=== PATIENT | female | born 1970 | race Two or more races ===

== ENCOUNTER 2016-11-25 10:15 | Observation (INO) | payer OTHER ==
[2016-11-25] MEDS ORDERED: LIDOCAINE 1% 2 ML INJ ID PRN (11:00)
[2016-11-25] MEDS ORDERED: LR 1,000 ML IV ONE ×3 (11:00→23:30)
--- NOTE | 2016-11-25 12:32 | PDHPUP ---
History & Physical Update H&P update statement: This history and physical update is based on an assessment of the patient which was completed after admission or registration (within 24 hours), but prior to the surgery/procedure. H&P update: H&P reviewed & patient examined, no change in patient's condition since H&P completed
--- NOTE | 2016-11-25 12:37 | PDANEPAE ---
ANE History of Present Illness B mastectomy ANE Past Medical History - Cardiovascular History Hx Hypertension: No Hx Arrhythmias: No Hx Chest Pain: No Hx Coronary Artery / Peripheral Vascular Disease: No Hx CHF / Valvular Disease: No Hx Palpitations: No Cardiovascular History Comment: heart murmur - no problems - Pulmonary History Hx COPD: No Hx Asthma/Reactive Airway Disease: No Hx Recent Upper Respiratory Infection: No Hx Oxygen in Use at Home: No Hx Sleep Apnea: No Sleep Apnea Screening Result - Last Documented: Negative - Neurologic History Hx Cerebrovascular Accident: No Hx Seizures: No Hx Dementia: No - Endocrine History Hx Diabetes: No Hypothyroid: Yes Hyperthyroid: Yes Endocrine History Comment: synthroid due to near total removal due to CA - Renal History Hx Renal Disorders: No - Liver History Hx Hepatic Disorders: No - Neurological & Psychiatric Hx Hx Neurological and Psychiatric Disorders: No - Cancer History Hx Cancer: Yes Cancer History Comment: thyroid cancer in 1993 - Congenital Disorder History Hx Congenital Disorders: No - GI History GERD: mild Hx Gastrointestinal Disorders: Yes Gastrointestinal History Comment: IBS - Other Health History Other Health History: L breast lump. painful periods. - Chronic Pain History Chronic Pain: No - Surgical History Prior Surgeries: 2011 right shoulder surgery, 1990 C section, 1993 total capillary surgery - remove thryroid gland, 1995 C section and tubal ligation, 1998 hernia , ANE Review of Systems - Exercise capacity METS (RN): 4 METS ANE Patient History - Allergies Allergies/Adverse Reactions: No Known Allergies Allergy (Verified 11/10/16 15:01) - Home Medications Home Medications: Levothyroxine [Synthroid 100 mcg (*)] 100 mcg PO DAILY06 11/10/16 [Last Taken 07:00] - NPO status NPO Since - Liquids (Date): 11/24/16 NPO Since - Liquids (Time): 18:00 NPO Since - Solids (Date): 11/24/16 NPO Since - Solids (Time): 18:00 - Anes Hx Anes Hx: no prior problems - Smoking Hx Smoking Status: Never smoked Marijuana use: No - Alcohol Use Alcohol Use: Rarely - Family Anes Hx Family Anes Hx: none Family Hx Anesthesia Complications: NONE ANE Labs/Vital Signs - Vital Signs Blood Pressure: 120/58 Heart Rate: 66 Respiratory Rate: 16 O2 Sat (%): 94 Height: 152.4 cm Weight: 63.503 kg ANE Physical Exam - [facility] 3 Mouth exam: normal dental/mouth exam - Pulmonary Pulmonary: clear to auscultation - Cardiovascular Cardiovascular: regular rate and rhythym - ASA Status ASA Status: II ANE Anesthesia Plan Anesthesia Plan: general endotracheal anesthesia
[2016-11-25] MEDS ORDERED: MIDAZOLAM 2 MG/2 ML VIAL IVP ONE (12:39)
[2016-11-25] MEDS ORDERED: BUPIVACAINE 0.25% 30 ML SDV ONE (12:45)
[2016-11-25] MEDS ORDERED: GENTAMICIN SULFATE 80 MG/2 ML VIAL ONE ×2 (12:46→14:13)
[2016-11-25] MEDS ORDERED: ceFAZolin 1 GM VIAL ONE ×3 (12:46→13:55)
[2016-11-25] MEDS ORDERED: ceFAZolin 1 GM/5 ML SYR ONE ×2 (12:48→14:14)
[2016-11-25] MEDS ORDERED: BACITRACIN 50,000 UNITS/10 ML SYR IRR ONE ×2 (12:49→14:15)
[2016-11-25] MEDS ORDERED: BACITRACIN ZINC 14.2 GM OINTTUBE TP ONE ×2 (12:50→16:31)
[2016-11-25] MEDS ORDERED: fentaNYL 100 MCG/2 ML INJ ONE ×5 (13:09→17:55)
[2016-11-25] MEDS ORDERED: PROPOFOL/EMULSION 500 MG/50 ML BOTTLE IV ONE (13:11)
[2016-11-25] MEDS ORDERED: ROCURONIUM 50 MG/5 ML VIAL ONE (13:12)
[2016-11-25] MEDS ORDERED: DEXAMETHASONE 4 MG/ML VIAL ONE (13:37)
[2016-11-25] MEDS ORDERED: KETOROLAC 30 MG/1 ML SDV ONE (14:30)
[2016-11-25] MEDS ORDERED: ONDANSETRON 4 MG/2 ML VIAL ONE (16:17)
[2016-11-25] MEDS ORDERED: PHENYLEPHRINE HCL 100 MCG/ML SYR ONE (16:17)
[2016-11-25] MEDS ORDERED: NEOSTIGMINE METHYLSULFATE 3 MG/3 ML SYR ONE (16:20)
[2016-11-25] MEDS ORDERED: GLYCOPYRROLATE 0.2 MG/1 ML VIAL ONE (16:21)
[2016-11-25] MEDS ORDERED: fentaNYL 100 MCG/2 ML INJ IVP PRN (16:48)
[2016-11-25] MEDS ORDERED: HYDROCODONE/APAP 5/325 TAB PO PRN (16:48)
[2016-11-25] MEDS ORDERED: NALOXONE HCL 0.4 MG/ML INJ IVP PRN (16:48)
--- NOTE | 2016-11-25 17:41 | POSTANESTH ---
Post Anesthetic Evaluation Cardiovascular Status: Normal, Stable Respiratory Status: Normal, Stable Level of Consciousness/Mental Status: Can Participate in Eval Pain Control: Adequate, Prn Tx Ordered Nausea/Vomiting Control: Adequate, Prn Tx Ordered Complications Possibly Related to Anesthesia: None Noted
[2016-11-25] MEDS ORDERED: ONDANSETRON 4 MG/2 ML VIAL IVP PRN (18:18)
[2016-11-25] MEDS ORDERED: HYDROmorphONE/DILAUDID 1 MG/ML SYR IVP PRN (18:18)
--- NOTE | 2016-11-25 18:24 | POSTOPPROG ---
Post Op Note Date of Operation: 11/25/16 Surgeon: Arsalan Garrison Clipper Automatic: Fahad Burgess Anesthesiologist: eDreck Hook Anesthesia: GET(General Endotracheal) Pre-op Diagnosis: BRCA 2 Post-op Diagnosis: Same Procedure: Bilat simple mastectomy with immed TE recons Inf/Abcess present in the surg proc area at time of surgery?: No EBL: 50-100 Complications: no immediate Specimen(s): bilateral breasts and nipple margins
--- NOTE | 2016-11-25 21:44 | GOP ---
[f rep st] OPERATIVE REPORT DATE OF OPERATION: 11/25/2016 SURGEON: Arsalan Garrison MD PLASTIC SURGEON: Tracy Huerta MD MANAGER CRITICAL CARE UNIT: Fahad Burgess CST ANESTHESIA: General. ANESTHESIOLOGIST: Dr. Hook. PREOPERATIVE DIAGNOSIS: BRCA2 mutation. POSTOPERATIVE DIAGNOSIS: BRCA2 mutation. PROCEDURE PERFORMED: Bilateral prophylactic nipple-sparing mastectomies with immediate tissue doll surgeon reconstruction. INDICATIONS: 45-year-old female with a history of BRCA2 mutation. She has opted to undergo prophylactic nipple-sparing mastectomies at this time. Risks and benefits were explained of bleeding, infection, potential development of breast cancer, skin flap necrosis, need for additional skin revision, as well as alternative diagnoses. All questions were answered. She desires to proceed. A surgical elastic knitter is standard and necessary and customary for the safe performance of this procedure. DESCRIPTION OF PROCEDURE: After general anesthesia was induced, bilateral breasts were incised through lateral inframammary fold incisions. Using electrocautery, skin flaps were created to the level of the clavicle, sternum, inframammary fold, as well as latissimus dorsi muscle laterally. The breast envelopes were peeled from [id number] and taken high up in the axillary tails of Ortiz incorporating the pectoralis major fascia. Using sharp dissection, bilateral nipples were cleared of all surrounding fibrous breast tissue. These were all sent as final nipple-margin specimens. Bilateral dissections were with extremely poorly defined tissue planes throughout both anterior and posterior dissections. Satisfactory hemostasis was assured. Care of the case was turned to Dr. Huerta for tissue doll surgeon placement and wound closure. /[id number]/MODL MTDD
[2016-11-25] MEDS: IBUPROFEN 600 MG TAB PO SCH (21:51)
[2016-11-26] MEDS: KETOROLAC 15 MG/1 ML SDV IVP SCH ×3 (00:31→11:21)
--- NOTE | 2016-11-26 02:19 | GOP ---
[f rep st] OPERATIVE REPORT DATE OF OPERATION: 11/25/2016 SURGEON: Tracy Huerta Jr., MD CLINICAL SUPPORT SPECIALIST: Fahad Burgess, ANESTHESIOLOGY FACULTY by surgeon request (skilled surgical attendant was necessary due t o the technical complexity of the case and desire to minimize patient's anesthesia time). ANESTHESIA: The patient had general inhalational anesthetic. ANESTHESIOLOGIST: Dereck Hook MD. PREOPERATIVE DIAGNOSIS: Genetic mutation for breast cancer. POSTOPERATIVE DIAGNOSIS: Genetic mutation for breast cancer. PROCEDURE PERFORMED: Immediate bilateral breast reconstruction utilizing tissue expanders and human dermal allograft. FINDINGS: ESTIMATED BLOOD LOSS: During reconstruction was 50 cc. INDICATIONS: The patient is a 45-year-old, female, with a strong family history for breast cancer and a genetic mutation predisposing her to the development of breast cancer. She elected to undergo bilateral prophylactic mastectomies, and elected to have immediate reconstruction using a s taged approach, utilizing tissue expanders, implants and autologous fat grafting. She came to the o perating room in conjunction with Dr. Garrison for the mastectomies and tissue leather belt loop cutter placement. DESCRIPTION OF PROCEDURE: After risks and benefits of the procedure were explained the patient, hig hlighting bleeding, infection, premature need to remove tissue expanders, asymmetry, damage to vesse ls or nerves, postoperative pain, and asymmetry and need for revisional procedures, formal operative consent was obtained. She was taken to the operating room by Dr. Garrison, where uncomplicated bilatera l complete nipple-sparing mastectomies were performed. Reconstruction began by redraping the patient, utilizing fresh instrumentation, cautery and suction units. The pockets initially were irrigated with normal saline. Meticulous hemostasis was assured. Reconstruction began by developing a submuscular pocket beneath the pectoralis major muscle throug h an inferior medial origin approach. Dissection proceeded beneath the serratus anterior laterally. Once the pocket had been dissected and released from the inferior origin, an Allergan NatPlum (Formerly Ube)e 133 [id number]-13-[id number] 550 cc tissue leather belt loop cutter was thoroughly tested, evacuated of air and filled with 100 cc of inj ectable saline. It was placed into the submuscular pocket bilaterally using a minimal touch techniq ue, and sutured down to the chest wall using 2-0 PDS suture. An AlloDerm medium contour acellular d ermis graft was triple rinsed in normal saline, soaked in triple antibiotic saline, and then used to reconstruct the inferior pole of both breasts. It was sutured into place using running 2-0 Vicryl suture. A 15 round CLARI drain was draped along the medial sternal border and the inferior breast pocket, exiti ng through a separate lateral stab incision. It was sutured into place. The pockets were irrigated again, using triple antibiotic saline. Meticulous hemostasis again assured. The incision was then closed in 2 layers. Transcutaneously, an additional 250 cc of injectable saline was placed into ea ch tissue leather belt loop cutter to achieve the correct breast shape and form without undue tension on the mastect jarett skin flaps. The patient had bacitracin, Xeroform, 4 x 4's, applied with a bra. She was extubat ed in the OR, taken to recovery room awake and in stable condition. TISSUE EXPANDERS: Allergan Natrelle [id number]-[id number] 550 cc devices, filled to 350 cc. Two CLARI drains were placed. COMPLICATIONS: No complications. /[id number]/MODL
[2016-11-26] MEDS: IBUPROFEN 600 MG TAB PO SCH ×2 (05:27→15:23)
[2016-11-26 10:14] VITALS: PULSE 79
--- NOTE | 2016-11-26 10:36 | SOAPPROG ---
SOAP Progress Note Assessment/Plan: Assessment: no overnight concerns. low BP responded approp to IVF challenge. min pain. no nausea. hungry. flaps pink, nipples viable. CLARI serosang. doing great. home today. Plan: 11/26/16 10:35 Objective: Vital Signs Temp Pulse Resp BP Pulse Ox 36.8 C 79 16 113/56 L 90 L 11/26/16 09:25 11/26/16 10:12 11/26/16 09:25 11/26/16 10:12 11/26/16 10:12 11/25/16 11/26/16 11/27/16 05:59 05:59 05:59 Intake Total 2115 1100 Output Total 622 60 Balance 1493 1040 ICD10 Worksheet Patient Problems: Problems Problem Status Onset BRCA gene mutation positive in female Acute - ICD10 Problem Qualifiers (1) BRCA gene mutation positive in female
[2016-11-26] MEDS: HYDROCODONE/APAP 5/325 TAB PO PRN ×2 (11:21→15:24)
--- NOTE | 2016-11-26 14:05 | ASMTCMCOM ---
CM Note CM Note Notes: Reviewed chart; spoke w/ Jennie RN. Pt admitted for an elective bilateral mastectomy and reconstruc tion sec to genetic mutation/family hx. Per Jennie and notes, pt to discharge home today, independently w/ family support and no identified needs. CM avail for any further issues or concerns. Date Signed: 11/26/2016 02:04 PM Electronically Signed By:Raquel Arora
[2016-11-26 15:23] VITALS: BP 120/73; RESP 18; TEMP 98.3; O2SAT 92
== END 2016-11-26 16:02 | disposition home or self-care (01) ==
LOC: F3E 10:15 → F1N 11:06
PROVIDERS: ADMIT Specialist; ATTEND Surgery
PROC: 0HTV0ZZ Resection of Bilateral Breast, Open Approach (ICD-10-PCS; principal; 2016-11-25 11:30)
PROC: 0HHV0NZ Insertion of Tissue Expander into Bilateral Breast, Open Approach (ICD-10-PCS; 2016-11-25 11:30)
DX: Z15.01 Genetic susceptibility to malignant neoplasm of breast (principal); N64.4 Mastodynia; Z80.3 Family history of malignant neoplasm of breast; Z85.850 Personal history of malignant neoplasm of thyroid
CPT/HCPCS: 19303; 19357; G0378; J0690; J1100; J1885; J2250; J2370; J2405; J2704; J2710; J3010; Q4116